=== PATIENT | male | born 1965 | race Caucasian/White ===

== ENCOUNTER 2018-04-05 05:45 | Day surgery (SDC) | payer BC ==
[~2018-04-05] VITALS: Ht 195.6 cm; Wt 98.9 kg
--- NOTE | ~2018-04-05 | O ---
[facility] [place] [address] OPERATIVE REPORT Name: TRENTON MOMIN Room #: 150-8 [facility]#: [id number] Admission: 04/05/18 Attend Phys: Trenton Sequeira MD Discharge: Date of : 67 Report #: [id number] THIS REPORT FOR: //name// CC: GE[place] Sequeira DATE OF SERVICE: 04/05/[address] Trenton Sequeira, Dr. Georgia Boykin. PREOPERATIVE DIAGNOSIS: Incarcerated umbilical hernia. POSTOPERATIVE DIAGNOSIS: Incarcerated umbilical hernia. PROCEDURE: Repair of an incarcerated umbilical hernia. SURGEON: Trenton Sequeira MD ANESTHESIA: Local IV sedation. DESCRIPTION OF PROCEDURE: The patient was brought to the Operating Room and placed on operative table in the supine position. Sequential compression devices were in place for DVT prophylaxis. There was no indication for preoperative antibiotics. The patient underwent IV sedation. The abdomen was then prepped and draped in a sterile fashion. Skin and subcutaneous tissue around the umbilicus was then infiltrated with 0.5% Marcaine and 1% Xylocaine in a 1:1 mixture. A transverse infraumbilical skin incision was then performed using #15 scalpel blade. Hemostasis was obtained using electrocautery. Dissection was carried down through subcutaneous tissue to some incarcerated preperitoneal fat, which was dissected free and reduced back into the abdomen. The fascial defect was then closed using interrupted simple [id number] #1 Prolene sutures. The deep and superficial subcutaneous tissue was then reapproximated using simple interrupted 2-0 chromic sutures and the skin then closed with a running 4-0 subcuticular Vicryl stitch. Wound was then dressed with Dermabond, Telfa, 4 x 4 gauze, sponge and tape. The patient was then taken to the recovery room awake, alert and in good condition. Estimated blood loss was approximately 5 mL and the patient tolerated the procedure well. All sponge, lap and instrument counts were correct x 2. By: [id number] [id number] Trenton Sequeira MD /nt
[~2018-04-05 05:45] MED LIST: FLEXERIL PO; IMITREX 25 MG T25 M1 PO; MULTIVITAMINS PO
[2018-04-05 07:02] VITALS: BP 115/72
[2018-04-05] MEDS ORDERED: NORCO 5-325 TA1 EACH PO (09:33)
[2018-04-05 09:35] VITALS: BP 115/72
--- NOTE | 2018-04-05 09:36 | H ---
[facility] [place] [address] HISTORY AND PHYSICAL Name: TRENTON MOMIN JR Room #: 150-8 [facility].#: [id number] Admission: 04/05/18 Attend Phys: Trenton Sequeira MD Discharge: Date of : 67 Report #: [id number] THIS REPORT FOR: //name// CC: Jalen Sequeira DATE OF SERVICE: 04/05/2018 DATE OF SURGERY: 04/05/2018. CHIEF COMPLAINT: Abdominal bulge. HISTORY OF PRESENT ILLNESS: The patient is a 52-year-old white male, a couple of years ago noticed a bulge in his umbilicus. This occasionally causes him some discomfort. He denied previous umbilical or laparoscopic surgery. No recent changes in bowel or bladder habits. He has had multiple knee surgeries in the past without any bleeding or anesthesia problems. He saw Dr. Boykin who recommended surgical consultation. PAST MEDICAL HISTORY: Restless legs syndrome, palpitations, lumbar radiculopathy, osteoarthritis of the knee, hypertriglyceridemia, migraines, anxiety, epididymitis, rosacea, sciatica. PAST SURGICAL HISTORY: Left knee arthroscopy in 2013. MEDICATIONS: Sumatriptan 25 mg p.o. p.r.n., cyclobenzaprine p.r.n., sildenafil p.r.n. ALLERGIES: PENICILLIN AND ASPIRIN. FAMILY HISTORY: Noncontributory. SOCIAL HISTORY: , does not smoke, drinks alcohol occasionally. 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 REVIEW OF SYSTEMS: Pertinent positives as above. Full review of systems as per electronic medical record as reviewed by myself. PHYSICAL EXAMINATION: GENERAL: Well-developed, well-nourished white male in no acute distress. VITAL SIGNS: Stable. He is afebrile. HEENT: Sclerae are nonicteric. Mucous membranes are moist and pink. NECK: There is no adenopathy, no thyromegaly. LUNGS: Clear to auscultation bilaterally. Normal excursion. CARDIOVASCULAR: Regular rate and rhythm. No murmurs, S3, S4, no PMI. ABDOMEN: Soft, flat, nontender, no palpable mass, no organomegaly. There is a [facility] [address] [place] [address] HISTORY AND PHYSICAL Name: TRENTON MOMIN Tarun Room #: 150-8 [facility]#: [id number] Admission: 04/05/18 Attend Phys: Trenton Sequeira MD Discharge: Date of : 67 Report #: [id number] small partially reducible umbilical hernia. EXTREMITIES: No clubbing, cyanosis or edema. NEUROLOGIC: Intact with a clear mental status. IMPRESSION: A 52-year-old white male with an umbilical hernia. I fully discussed with the patient the diagnosis, prognosis, and treatment options. He states he understands and agrees to proposed surgery. PLAN: We will perform an umbilical hernia repair under local IV sedation as an outpatient at [facility]. The procedure and its risks, benefits, possible complications including possible need for mesh were fully discussed with the patient. He states he understands and agrees to proposed surgery. <ELECTRONICALLY SIGNED> By: Trenton Sequeira MD 04/05/18 [id number] Trenton Sequeira MD /nt
== END 2018-04-05 10:15 | disposition home or self-care (01) ==
LOC: OR 05:45 → TBA 05:52 → OR 06:33
DX: K42.0 Umbilical hernia with obstruction, without gangrene (principal); M17.0 Bilateral primary osteoarthritis of knee; E78.1 Pure hyperglyceridemia; G43.909 Migraine, unspecified, not intractable, without status migrainosus; F41.9 Anxiety disorder, unspecified; Z98.890 Other specified postprocedural states; Z79.899 Other long term (current) drug therapy; Z88.0 Allergy status to penicillin; Z88.8 Allergy status to other drugs, medicaments and biological substances
CPT/HCPCS: 50010; 50101; 50386; 50417; 54118; 56524; 56525; 56526; 62110; 62850; 70005